=== PATIENT | female | born 1985 | race Caucasian/White ===

== ENCOUNTER 2020-08-17 08:11 | Emergency (ER) | payer OTHER ==
--- NOTE | 2020-08-17 10:10 | EDPHYS ---
Physician Documentation [facility] Name: Millie Page Age: 35 yrs Sex: Female : 1985 Arrival Date: 08/17/2020 Time: 08:16 Bed 12 Private MD: ED Physician Serena Mccormack HPI: 08/17 09:33 This 35 yrs old Female presents to ER via Ambulatory with complaints of Sore ma2 Throat. 09:33 Onset: The symptoms/episode began/occurred gradually, 2 day(s) ago. Severity of ma2 symptoms: At their worst the symptoms were very mild, in the emergency department the symptoms are unchanged. Associated signs and symptoms: Pertinent negatives cough, diarrhea, dysphagia. The patient has not experienced similar symptoms in the past, The patient has experienced a previous episode. 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 - Social history:: Smoking status: Patient denies any tobacco usage or history of. - Family history:: not pertinent. ROS: 09:33 Constitutional: Negative for fever, chills, and weight loss. ma2 09:33 All other systems are negative. Exam: 09:33 Constitutional: This is a well developed, well nourished patient who is awake, alert, ma2 and in no acute distress. Eyes: Pupils equal round and reactive to light, extra-ocular motions intact. Lids and lashes normal. Conjunctiva and sclera are non-icteric and not injected. Cornea within normal limits. Periorbital areas with no swelling, redness, or edema. ENT: Nares patent. No nasal discharge, no septal abnormalities noted. Tympanic membranes are normal and external auditory canals are clear. Oropharynx with no redness, swelling, or masses, exudates, or evidence of obstruction, uvula midline. Mucous membranes moist. Neck: Trachea midline, no thyromegaly or masses palpated, and no cervical lymphadenopathy. Supple, full range of motion without nuchal rigidity, or vertebral point tenderness. No Meningismus. Chest/axilla: Normal chest wall appearance and motion. Nontender with no deformity. No lesions are appreciated. Cardiovascular: Regular rate and rhythm with a normal S1 and S2. No gallops, murmurs, or rubs. Normal PMI, no JVD. No pulse deficits. Respiratory: Lungs have equal breath sounds bilaterally, clear to auscultation and percussion. No rales, rhonchi or wheezes noted. No increased work of breathing, no retractions or nasal flaring. Abdomen/GI: Soft, non-tender, with normal bowel sounds. No distension or tympany. No guarding or rebound. No evidence of tenderness throughout. Back: No spinal tenderness. No costovertebral tenderness. Full range of motion. Skin: Warm, dry with normal turgor. Normal color with no rashes, no lesions, and no evidence of cellulitis. MS/ Extremity: Pulses equal, no cyanosis. Neurovascular intact. Full, normal range of motion. Neuro: Awake and alert, GCS 15, oriented to person, place, time, and situation. Cranial nerves II-XII grossly intact. Motor strength 5/5 in all extremities. Sensory grossly intact. Cerebellar exam normal. Normal gait. Vital Signs: 08:28 BP 111 / 68; Pulse 77; Resp 16; Temp 97.2(T); Pulse Ox 99% ; Height 5 ft. 2 in. (157.48 sv cm); 08:34 BP 130 / 67; Pulse 74; Resp 18; Temp 97.2; Pulse Ox 100% on R/A; Pain 4/10; ld1 MDM: 08:48 Patient medically screened. or2 09:33 Differential diagnosis: Allergic rhinitis, tonsillitis, upper respiratory infection, ma2 viral syndrome. Data reviewed: vital signs, nurses notes. 10:09 Counseling: I had a detailed discussion with the patient and/or guardian regarding: the [facility] historical points, exam findings, and any diagnostic results supporting the discharge/admit diagnosis, the presence of at least one elevated blood pressure reading (>120/80) during this emergency department visit, the need for outpatient follow up. 08/17 08:50 Order name: COVID-19 : Document "Date of Symptom Onset" if Symptomatic. [facility] 08/17 08:50 Order name: Strep; Complete Time: 09:59 [facility] 08/17 09:18 Order name: CORONAVIRUS [facility] 08/17 09:37 Order name: Throat Culture [facility] 08/17 09:57 Order name: SARS-COV-2 RT PCR; Complete Time: 09:59 [facility] Administered Medications: No medications were administered Disposition: 08/17/20 10:09 Discharged to Home. Impression: Acute pharyngitis. - Condition is Stable. - Discharge Instructions: Pharyngitis. - Prescriptions for Zithromax Z- Yassine 250 mg Oral Tablet - take 1 tablet by ORAL route as directed for 5 days Day 1 - take two (2) tablets one time. Day 2, 3, 4 , 5 take one (1) tablet once daily.; 6 tablet. Medrol (Yassine) 4 mg Oral Tablets, Dose Pack - take 1 tablet by ORAL route as directed - follow package instructions; 1 packet. - Medication Reconciliation Form, Thank You Letter, Antibiotic Education, Prescription Opioid Use form. - Follow up: Private Physician; When: Tomorrow; Reason: Continuance of care. Signatures: Dispatcher [employer] [facility] Judy Henry RN RN Serena Mccormack MD MD ma2 Suzie Michaels RN RN ld1 Corrections: (The following items were deleted from the chart) 10:27 10:09 08/17/2020 10:09 Discharged to Home. Impression: Acute pharyngitis. Condition is ld1 Stable. Discharge Instructions: Pharyngitis. Prescriptions for Zithromax Z-Yassine 250 mg Oral Tablet - take 1 tablet by ORAL route as directed for 5 days Day 1 - take two (2) tablets one time. Day 2, 3, 4 , 5 take one (1) tablet once daily.; 6 tablet, Medrol (Yassine) 4 mg Oral Tablets, Dose Pack - take 1 tablet by ORAL route as directed - follow package instructions; 1 packet. and Forms are Medication Reconciliation Form, Thank You Letter, Antibiotic Education, Prescription Opioid Use. Follow up: Private Physician; When: Tomorrow; Reason: Continuance of care. ma2
--- NOTE | 2020-08-17 10:10 | ER ---
Nurse's Notes [facility] Name: Millie Page Age: 35 yrs Sex: Female : 1985 Arrival Date: 08/17/2020 Time: 08:16 Bed 12 Private MD: Diagnosis: Acute pharyngitis Presentation: 08/17 08:27 Chief complaint: Patient states: sore throat x 2 days. Coronavirus screen: Client sv denies travel out of the [place] in the last 14 days. Client presents with at least one sign or symptom that may indicate coronavirus-19. Standard/surgical mask placed on the client. Provider contacted for isolation considerations. Ebola Screen: No symptoms or risks identified at this time. Risk Assessment: Do you want to hurt yourself or someone else? Patient reports no desire to harm self or others. Onset of symptoms was August 15, 2020. 08:27 Method Of Arrival: Ambulatory sv 08:27 Acuity: KVNG 4 sv 08:28 Initial Sepsis Screen: Does the patient meet any 2 criteria? No. Patient's initial sv sepsis screen is negative. Does the patient have a suspected source of infection? No. Patient's initial sepsis screen is negative. 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 - Social history:: Smoking status: Patient denies any tobacco usage or history of. - Family history:: not pertinent. Screenin:34 Abuse screen: Denies threats or abuse. Denies injuries from another. Nutritional ld1 screening: No deficits noted. Tuberculosis screening: No symptoms or risk factors identified. Fall Risk None identified. Assessment: 08:34 General: Appears in no apparent distress. comfortable, Behavior is calm, cooperative, ld1 appropriate for age. Pain: Denies pain. Neuro: Level of Consciousness is awake, alert, obeys commands, Oriented to person, place, time, situation. Cardiovascular: Capillary refill < 3 seconds Patient's skin is warm and dry. Respiratory: Airway is patent Respiratory effort is even, unlabored, Respiratory pattern is regular, symmetrical, Breath sounds are clear bilaterally. GI: Abdomen is flat, non-distended. : No signs and/or symptoms were reported regarding the genitourinary system. EENT: Throat is pink is reddened. Derm: No signs and/or symptoms reported regarding the dermatologic system. Musculoskeletal: No signs and/or symptoms reported regarding the musculoskeletal system. 08:34 Pain: Complains of pain in uvula, left aspect of posterior pharynx and right aspect of ld1 posterior pharynx Pain does not radiate. Pain currently is 4 out of 10 on a pain scale. Quality of pain is described as burning, Pain began 2-3 days ago. Is continuous. 08:38 Reassessment: ERP at bedside discussing POC. ld1 Vital Signs: 08:28 BP 111 / 68; Pulse 77; Resp 16; Temp 97.2(T); Pulse Ox 99% ; Height 5 ft. 2 in. (157.48 sv cm); 08:34 BP 130 / 67; Pulse 74; Resp 18; Temp 97.2; Pulse Ox 100% on R/A; Pain 4/10; ld1 ED Course: 08:16 Patient arrived in ED. ds1 08:27 Triage completed. sv 08:27 Arm band placed on. sv 08:30 Suzie Michaels RN is Primary Nurse. ld1 08:34 Patient has correct armband on for positive identification. Bed in low position. Call ld1 light in reach. Side rails up X 1. Pulse ox on. NIBP on. 08:34 No provider procedures requiring assistance completed. ld1 08:48 Serena Mccormack MD is Attending Physician. ma2 08:59 COVID-19 : Document "Date of Symptom Onset" if Symptomatic. Sent. ld1 08:59 Strep Sent. ld1 09:22 CORONAVIRUS Sent. ld1 10:27 Patient did not have IV access during this emergency room visit. ld1 Administered Medications: No medications were administered Outcome: 10:09 Discharge ordered by . ma2 10:26 Discharged to home ambulatory. ld1 10:26 Condition: stable 10:26 Discharge instructions given to patient, Instructed on discharge instructions, follow up and referral plans. medication usage, Demonstrated understanding of instructions, follow-up care, medications. 10:27 Patient left the ED. ld1 Signatures: Judy Henry RN RN Chelly Hernandez ds1 Serena Mccormack MD MD ma2 Suzie Michaels RN RN ld1 Corrections: (The following items were deleted from the chart) 08:30 08:28 Pulse 77bpm; Resp 16bpm; Pulse Ox 99%; Temp 97.2F; Height 5 ft. 2 in.; sv sv
[2020-08-17 10:34] VITALS: TEMP 97.2
[2020-08-17 10:35] VITALS: BP 130/67; O2SAT 100
== END 2020-08-17 10:27 | disposition home or self-care (01) ==
LOC: ER 08:11
DX: J02.9 Acute pharyngitis, unspecified (principal); Z20.822 Contact with and (suspected) exposure to COVID-19
CPT/HCPCS: 87070; 87081; U0003; 99283

== ENCOUNTER 2024-08-12 04:44 | Emergency (ER) | payer SELFPAY ==
[2024-08-12 05:45] LABS: Absolute Basophils 0.1 K/uL (0-0.5); Absolute Eosinophils 0.2 K/uL (0-0.5); Absolute Lymphocytes (CBC) 1.7 K/uL (0.7-4.9); Absolute Monocytes 0.4 K/uL (0.1-1.3); Absolute Neutrophil 3.8 K/uL (1.8-8.0); Basophils % 1.1 % (0-1.3); Hematocrit 33.3 % (36.0-45.0); Hemoglobin 10.7 g/dL (12.0-15.0); Lymphocytes % 27.1 % (15.3-44.8); MCH 21.3 pg (27.0-35.0); MCV 66.7 fL (80-100); MPV 9.3 fL (7.6-11.3); Monocytes % 7.1 % (3.3-12.3); Neutrophils % 60.7 % (41.7-73.7); Platelets 290 thou/uL (152-406); Red Cell Distribution Width 17.2 % (12.1-15.2)
[2024-08-12 05:47] LABS: PT Prothrombin Time 11.4 SECONDS (10-13.0)
[2024-08-12 06:01] LABS: ALT/SGPT 21 U/L (13-56); AST/SGOT < 10 U/L (15-37); Albumin 3.7 g/dL (3.4-5.0); Alkaline Phosphatase 66 U/L (45-117); Anion Gap 10.8 mEq/L (5.0-15.0); BUN Blood Urea Nitrogen 10 mg/dL (7-18); Bicarbonate 23 mEq/L (21-32); Bilirubin Direct < 0.2 mg/dL (0-0.2); Bilirubin Indirect, Calculated 0.3 mg/dL (0.2-0.8); Bilirubin Total 0.5 mg/dL (0.2-1.0); Globulin 3.6 g/dL (2.3-3.5); Glomerular Filtration Rate 104 ml/min (=/>90); Glucose Level 99 mg/dL (74-106); Magnesium 2.2 mg/dL (1.6-2.4); NT PRO-BNP 80 pg/mL (<125); Potassium 3.8 mEq/L (3.5-5.1); Protein, Total 7.3 g/dL (6.4-8.2); Sodium Level 139 mEq/L (136-145); Troponin High Sensitivity 3.6 pg/mL (<58.9)
--- NOTE | 2024-08-12 06:12 | RAD REPORT ---
CLINICAL HISTORY: Chest pain. COMPARISON: None. TECHNIQUE: XR CHEST 1 VIEW 08/12/2024 5:08 AM CDT FINDINGS: The heart is borderline in size. Pediatric sternotomy wires are present. There is a metallic surgical construct in the region of the main pulmonary artery, overall indeterminate. Lungs are clear without consolidation, atelectasis, mass or edema. There is no pleural effusion. There is no pneumoth orax. There are no acute osseous findings. IMPRESSION: No pneumonia. Electronically signed by: Esdras Hill MD 08/12/2024 05:59 AM CDT RP Due to temporary technical issues with the PACS/[employer] reporting system, reports are being jesus d by the in-house radiologist without review as a courtesy to ensure prompt reporting the interpreting radiologist is fully responsible for the content of the report. Transcribed Date/Time: 08/12/2024 6:12 AM
[2024-08-12 07:27] LABS: Specific Gravity 1.008 (1.005-1.030); Urine Bilirubin NEGATIVE (Negative); Urine Blood Negative (Negative); Urine Clarity Clear (Clear); Urine Color Colorless (Yellow); Urine Glucose NEGATIVE (Negative); Urine Ketones NEGATIVE (Negative); Urine Microscopic Reflex YN NO UMIC; Urine Nitrite NEGATIVE (Negative); Urine Protein NEGATIVE (Negative); Urine Urobilinogen Normal (Normal); Urine pH 6.5 (5.0-7.0)
[2024-08-12 07:38] LABS: Anisocytosis SLIGHT; Blood Morphology Comment NOTED (NOT SEEN); Microcytosis SLIGHT; Platelet Estimate ADEQ; White Blood Cell Scan OK (OK)
--- NOTE | 2024-08-12 08:26 | RAD REPORT ---
EXAM: CT Chest For Pe Angio TECHNIQUE: CT angiogram of the chest was performed following intravenous contrast administration, inc luding sagittal and coronal as well as maximum intensity projection reformats. One or more of the following dose reduction techniques were used: Automated exposure control, adjustment of the mA and k V according to patient size, and iterative reconstruction. Unless otherwise specified, incidental findings do not require dedicated imaging follow-up. INDICATION: CHEST PAIN COMPARISON: 08/12/2024 chest radiograph. FINDINGS: LINES/TUBES: None. PULMONARY ARTERIES: Main pulmonary arteries are normal in caliber. No filling defects within the pul monary arteries to suggest pulmonary embolus. LUNGS AND AIRWAYS: The central airways are patent with confluent patchy groundglass opacities centere d on the upper segment right lower lobe. PLEURA: No effusion or pneumothorax. HEART AND MEDIASTINUM: The visualized thyroid gland is normal. No mediastinal, hilar, or axillary lym phadenopathy. Heart is unremarkable. No pericardial effusion. SOFT TISSUES AND BONES: No acute osseous abnormality. No significant soft tissue finding. UPPER ABDOMEN: Unremarkable. IMPRESSION: No evidence of acute central pulmonary emboli. Patchy right lower lobe upper segment groundglass opacities, concerning for pneumonia.
--- NOTE | 2024-08-12 08:56 | ER ---
Nurse's Notes [facility] Name: Millie Armijo Age: 39 yrs Sex: Female : 1985 Arrival Date: 08/12/2024 Time: 04:44 Bed 5 Private MD: Diagnosis: Pneumonia, unspecified organism Presentation: 08/12 04:55 Chief complaint: Patient states: I HAVE BEEN FEELING SHORTNESS OF BREATH SINCE ha1 MONDAY. TONIGHT I WOKE UP FEELING CHEST PRESSURE NECK PAIN, CHEST CONGESTION, AND FAST HEART RATE, FEELING TIRED, AND HEADACHE. 04:55 Coronavirus screen: Client denies travel out of the [place] in the last 14 days. Ebola ha1 Screen: No symptoms or risks identified at this time. Initial Sepsis Screen: Does the patient meet any 2 criteria? No. Patient's initial sepsis screen is negative. Does the patient have a suspected source of infection? No. Patient's initial sepsis screen is negative. Risk Assessment: Do you want to hurt yourself or someone else? Patient reports no desire to harm self or others. Onset of symptoms was August 12, 2024. 04:55 Method Of Arrival: Ambulatory ha1 04:55 Acuity: KVNG 2 ha1 Triage Assessment: 04:55 General: Appears uncomfortable, Behavior is cooperative. Pain: Complains of pain in ha1 CHEST PRESSURE Pain currently is 4 out of 10 on a pain scale. Quality of pain is described as pressure. Neuro: Level of Consciousness is awake, alert, obeys commands, Oriented to person, place, time, situation. Cardiovascular: Reports shortness of breath, since CHEST PRESSURE Murmur present Capillary refill < 3 seconds Patient's skin is warm and dry. Rhythm is sinus rhythm. Respiratory: Reports shortness of breath at rest on exertion CHEST CONGESTION Onset: The symptoms/episode began/occurred gradually, the patient has moderate shortness of breath. GI: Abdomen is round non-distended, Bowel sounds present X 4 quads. : No signs and/or symptoms were reported regarding the genitourinary system. Derm: Skin is pink, warm \T\ dry. Musculoskeletal: Circulation, motion, and sensation intact. Range of motion: intact in all extremities. Historical: - Allergies: 04:55 No Known Allergies; ha1 - PMHx: 04:55 AORTIC STENOSIS; AORTIC INSUFICIENT; ha1 - PSHx: 04:55 OPEN HEART SURGERY (1994); ha1 - Immunization history:: Adult Immunizations up to date. - Infectious Disease History:: Denies. - Social history:: Smoking status: Reported history of juuling and/or vaping. - Family history:: not pertinent. Screenin:43 [facility] ED Fall Risk Assessment (Adult) History of falling in the last 3 months, ha1 including since admission No falls in past 3 months (0 pts) Confusion or Disorientation No (0 pts) Intoxicated or Sedated No (0 pts) Impaired Gait No (0 pts) Mobility Assist Device Used No (0 pt) Altered Elimination No (0 pt) Score/Fall Risk Level 0 - 2 = Low Risk Oriented to surroundings, Maintained a safe environment, Educated pt \T\ family on fall prevention, incl call for assistance when getting out of bed, Hourly rounding (assess needs \T\ fall precautionary measures) done. Abuse screen: Denies threats or abuse. Denies injuries from another. Nutritional screening: No deficits noted. Tuberculosis screening: No symptoms or risk factors identified. Assessment: 05:45 Reassessment: SEE TRIAGE ASSESSMENT. Cardiovascular: Reports shortness of breath, ha1 Murmur present Capillary refill < 3 seconds Patient's skin is warm and dry. Respiratory: Reports shortness of breath at rest Airway is patent Respiratory effort is even, unlabored, 06:43 Reassessment: Patient appears in no apparent distress at this time. No changes from lg3 previously documented assessment. Patient and/or family updated on plan of care and expected duration. Pain level reassessed. Patient is alert, oriented x 3, equal unlabored respirations, skin warm/dry/pink. 07:20 Reassessment: Patient appears in no apparent distress at this time. Patient and/or iw family updated on plan of care and expected duration. Pain level reassessed. Patient is alert, oriented x 3, equal unlabored respirations, skin warm/dry/pink. pt states she feels light headed after CT, also having urinary issues, like frequency and some burning. Vital Signs: 04:55 BP 136 / 84; Pulse 70; Resp 17 S; Temp 98.2(O); Pulse Ox 100% on R/A; Weight 74.84 kg; ha1 Height 5 ft. 1 in. ; 06:43 BP 127 / 69; Pulse 66; Resp 20 S; Pulse Ox 100% on R/A; lg3 07:36 BP 130 / 69; Pulse 61; Resp 16; Pulse Ox 100% on R/A; iw 04:55 Body Mass Index 31.18 (74.84 kg, 154.94 cm) ha1 Driver Coma Score: 05:42 Eye Response: spontaneous(4). Motor Response: obeys commands(6). Verbal Response: sp4 oriented(5). Total: 15. ED Course: 04:52 Patient arrived in ED. gm2 04:55 Patient has correct armband on for positive identification. Placed in gown. Bed in low ha1 position. Call light in reach. Side rails up X 1. 04:55 Provided Education on: PLAN OF CARE . Client placed on continuous cardiac and pulse ha1 oximetry monitoring. NIBP monitoring applied. instant printer operator on. Door closed. Noise minimized. Lights dimmed. Warm blanket given. Pillow given. 05:07 Rudolph Tejeda MD is Attending Physician. sp4 05:13 Rupali Mendenhall, JOSS is Primary Nurse. ha1 05:17 Triage completed. ha1 05:35 Basic Metabolic Panel Sent. ha1 05:35 CBC with Diff Sent. ha1 05:35 LFT's Sent. ha1 05:35 Magnesium Sent. ha1 05:35 NT PRO-BNP Sent. ha1 05:36 PT-INR Sent. ha1 05:36 Troponin HS Sent. ha1 05:36 Test, Serum Sent. ha1 05:45 XRAY Chest (1 view) In Process Unspecified. EDMS 07:05 CT Chest For PE Angio In Process Unspecified. EDMS 07:21 Attending Physician role handed off by Rudolph Tejeda MD ms3 07:21 Cory Trujillo DO is Attending Physician. ms3 07:37 Primary Nurse role handed off by Rupali Mendenhall RN iw 07:37 Amelia Estrella, JOSS is Primary Nurse. iw 08:50 Jonathon Harrison DO is Referral Physician. ms3 09:29 No provider procedures requiring assistance completed. IV discontinued, intact, iw bleeding controlled, No redness/swelling at site. Pressure dressing applied. Administered Medications: No medications were administered Medication: 05:45 VIS not applicable for this client. ha1 Outcome: 08:55 Discharge ordered by . ms3 09:29 Discharged to home ambulatory, iw 09:29 Condition: good 09:29 Discharge instructions given to patient, Instructed on discharge instructions, follow up and referral plans. medication usage, Demonstrated understanding of instructions, follow-up care, medications, Prescriptions given X 2, 09:29 Patient left the ED. iw Signatures: Dispatcher [employer] EDMS Amelia Estrella RN JOSS Able, JOSS Verdugo RN lg3 Cory Trujillo, DO ms3 Rupali Mendenhall RN RN ha1 Rudolph Tejeda MD MD sp4 Heather Flowers 2 Corrections: (The following items were deleted from the chart) 05:47 04:55 Chief complaint: Patient states: I HAVE BEEN FEELING SHORTNESS OF BREATH SINCE ha1 MONDAY. TONIGHT I WOKE UP FEELING CHEST PRESSURE NECK PAIN, CHEST CONGESTION, AND FAST HEART RATE ha1
--- NOTE | 2024-08-12 08:56 | EDPHYS ---
Physician Documentation [facility] Name: Millie Armijo Age: 39 yrs Sex: Female : 1985 Arrival Date: 08/12/2024 Time: 04:44 Bed 5 Private MD: ED Physician Cory Trujillo HPI: 08/12 05:07 This 39 yrs old Female presents to ER via Unassigned with complaints of sp4 Shortness Of Breath, General Weakness, neck pain, patient has had two prior open heart surgerys. 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 Reported generalized weakness since , 5 days ago moderate to severe orthopnea as well. . Historical: - Allergies: 04:55 No Known Allergies; ha1 - PMHx: 04:55 AORTIC STENOSIS; AORTIC INSUFICIENT; ha1 - PSHx: 04:55 OPEN HEART SURGERY (1994); ha1 - Immunization history:: Adult Immunizations up to date. - Infectious Disease History:: Denies. - Social history:: Smoking status: Reported history of juuling and/or vaping. - Family history:: not pertinent. ROS: 05:42 Constitutional: Negative for fever, chills, and weight loss, positive dyspnea on sp4 exertion, positive generalized weakness, positive orthopnea 05:42 All other systems are negative, Exam: 05:42 Constitutional: This is a well developed, well nourished patient who is awake, alert, sp4 and in no acute distress. Head/Face: Normocephalic, atraumatic. Eyes: Pupils equal round and reactive to light, extra-ocular motions intact. Lids and lashes normal. Conjunctiva and sclera are not injected. Cornea within normal limits. Periorbital areas with no swelling, redness, or edema. ENT: Nares patent. No nasal discharge, no septal abnormalities noted. Tympanic membranes are normal and external auditory canals are clear. Oropharynx with no redness, swelling, or masses, exudates, or evidence of obstruction, uvula midline. Mucous membranes moist. Neck: Trachea midline, no thyromegaly or masses palpated, and no cervical lymphadenopathy. Supple, full range of motion without nuchal rigidity, or vertebral point tenderness. Positive jugular venous distention, Chest/axilla: Normal chest wall appearance and motion. Nontender with no deformity. No lesions are appreciated. Cardiovascular: Regular rate and rhythm with a normal S1 and S2. No gallops, or rubs. Normal PMI, no JVD. No pulse deficits. Positive moderate aortic murmur Respiratory: Lungs have equal breath sounds bilaterally, clear to auscultation and percussion. No rales, rhonchi or wheezes noted. No increased work of breathing, no retractions or nasal flaring. Abdomen/GI: Soft, with normal bowel sounds. No distension or tympany. No guarding or rebound. No evidence of tenderness throughout. Back: No spinal tenderness. No costovertebral tenderness. Skin: Warm, dry with normal turgor. Normal color with no rashes, no lesions, and no evidence of cellulitis. MS/ Extremity: Pulses equal, no cyanosis. Neurovascular intact. Full, normal range of motion. Neuro: Awake and alert, GCS 15, oriented to person, place, time, and situation. Cranial nerves II-XII grossly intact. Motor strength 5/5 in all extremities. Sensory grossly intact. Psych: Awake, alert, with orientation to person, place and time. Behavior, mood, and affect are within normal limits 05:42 ECG was reviewed by the Attending Physician. EKG 0 510 normal sinus rhythm rate 65 sp4 normal EKG Vital Signs: 04:55 BP 136 / 84; Pulse 70; Resp 17 S; Temp 98.2(O); Pulse Ox 100% on R/A; Weight 74.84 kg; ha1 Height 5 ft. 1 in. ; 06:43 BP 127 / 69; Pulse 66; Resp 20 S; Pulse Ox 100% on R/A; lg3 07:36 BP 130 / 69; Pulse 61; Resp 16; Pulse Ox 100% on R/A; iw 04:55 Body Mass Index 31.18 (74.84 kg, 154.94 cm) ha1 Herminio Coma Score: 05:42 Eye Response: spontaneous(4). Motor Response: obeys commands(6). Verbal Response: sp4 oriented(5). Total: 15. MDM: 05:37 Medical Screening Exam initiated sp4 05:46 Differential diagnosis: Anxiety Reaction CHF exacerbation, Chronic Obstructive sp4 Pulmonary Disease pneumonia, Psychogenic pulmonary edema, Unstable Angina. Data reviewed: vital signs, nurses notes, lab test result(s), radiologic studies, CT scan, plain films. 06:24 ED course: CLINICAL HISTORY: Chest pain. COMPARISON: None. TECHNIQUE: XR CHEST 1 VIEW 4 08/12/2024 5:08 AM CDT FINDINGS: The heart is borderline in size. Pediatric sternotomy wires are present. There is a metallic surgical construct in the region of the main pulmonary artery, overall indeterminate. Lungs are clear without consolidation, atelectasis, mass or edema. There is no pleural effusion. There is no pneumothorax. There are no acute osseous findings. IMPRESSION: No pneumonia. . 06:55 Transition of care: After a detail discussion of the patient's case, care is sp4 transferred to Cory Trujillo DO. ED course: Patient is waiting on the CTA of the chest.. 07:22 Transition of care: Care assumed from Rudolph Tejeda MD. ED course: Patient care/ ms3 report received from Dr Tejeda. Patient is 39 yo female with pmh of aortic stenosis presenting with dyspnea. BNP normal. CT chest pending.. 08/12 05:08 Order name: Basic Metabolic Panel; Complete Time: 06:23 sp4 08/12 05:08 Order name: CBC with Diff; Complete Time: 08:31 sp4 08/12 05:08 Order name: LFT's; Complete Time: 06:23 sp4 08/12 05:08 Order name: Magnesium; Complete Time: 06:23 sp4 08/12 05:08 Order name: NT PRO-BNP; Complete Time: 06:23 sp4 08/12 05:08 Order name: PT-INR; Complete Time: 06:23 sp4 08/12 05:08 Order name: Troponin HS; Complete Time: 06:23 sp4 08/12 05:24 Order name: Test, Serum; Complete Time: 06:23 sp4 08/12 06:35 Order name: CBC Smear Scan; Complete Time: 08:31 EDMS 08/12 07:07 Order name: UA Rfx Moses Cult if indicated; Complete Time: 07:30 lg3 08/12 05:08 Order name: XRAY Chest (1 view); Complete Time: 06:23 sp4 08/12 05:17 Order name: CT Chest For PE Angio; Complete Time: 08:31 sp4 08/12 05:08 Order name: Cardiac monitoring; Complete Time: 05:14 sp4 08/12 05:08 Order name: EKG - Nurse/Tech; Complete Time: 05:14 sp4 08/12 05:08 Order name: IV Saline Lock; Complete Time: 05:35 sp4 08/12 05:08 Order name: Labs collected and sent; Complete Time: 05:35 sp4 08/12 05:08 Order name: O2 Per Protocol; Complete Time: 05:14 sp4 08/12 05:08 Order name: O2 Sat Monitoring; Complete Time: 05:14 sp4 EC:10 Rate is 65 beats/min. Rhythm is regular, Normal Sinus Rhythm. QRS [place] is Normal. CO sp4 interval is normal. QRS interval is normal. QT interval is normal. No Q waves. T waves are Normal. No ST changes noted. Clinical impression: Normal ECG. Interpreted by me. Reviewed by me. Administered Medications: No medications were administered Disposition Summary: 08/12/24 08:55 Discharge Ordered Notes: Location: Home ms3 Condition: Stable ms3 Diagnosis - Pneumonia, unspecified organism ms3 Followup: ms3 - With: Jonathon Harrison DO - When: 2 - 3 days - Reason: Recheck today's complaints Discharge Instructions: - Discharge Summary Sheet ms3 - Community-Acquired Pneumonia, Adult ms3 Forms: - Work release form iw - Medication Reconciliation Form ms3 - Antibiotic Education ms3 - Prescription Opioid Use ms3 - Patient Portal Instructions ms3 - Leadership Thank You Letter ms3 Prescriptions: - albuterol sulfate 90 mcg/actuation Inhalation HFA Aerosol Inhaler - inhale 2 puff INHALATION route 4 times per day as needed for shortness of ms3 breath or wheezing; 1 unit; Refills: 0, Product Selection Permitted - Zithromax Z-Yassine 250 mg Oral Tablet - take 1 tablet ORAL route as directed for 5 days Day 1 - take two (2) tablets ms3 one time. Day 2, 3, 4 , 5 take one (1) tablet once daily.; 6 tablet; Refills: 0, Product Selection Permitted Signatures: Dispatcher [employer] EDCory Jung DO DO ms3 Rupali Mendenhall RN RN ha1 Rudolph Tejeda MD MD sp4 Corrections: (The following items were deleted from the chart) 05:08 05:08 BASIC METABOLIC PANEL+C.LAB.BRZ ordered. EDMS EDMS 05:08 05:08 CBC+H.LAB.BRZ ordered. EDMS EDMS 05:08 05:08 HEPATIC FUNCTION+C.LAB.BRZ ordered. EDMS EDMS 05:08 05:08 MAGNESIUM+C.LAB.BRZ ordered. EDMS EDMS 05:08 05:08 PROBNP+C.LAB.BRZ ordered. EDMS EDMS 05:08 05:08 PROTIME (+INR)+COAG.LAB.BRZ ordered. EDMS EDMS 05:08 05:08 Troponin High Sensitivity+C.LAB.BRZ ordered. EDMS EDMS 05:08 05:08 Chest Single View+RAD.RAD.BRZ ordered. EDMS EDMS
[2024-08-12 09:33] VITALS: TEMP 98.2; O2SAT 100
[2024-08-12 09:37] VITALS: BP 130/69
--- NOTE | 2024-08-12 11:56 | EKG ---
Test Date: 2024-08-12 Test Time: 05:10:08 [employer]: LANEY MEASUREMENT RESULTS: Intervals: Rate: 65 MN: 174 QRSD: 78 QT: 414 QTc: 430 Gamaliel: P: 39 MN: 174 QRS: 76 T: 61 INTERPRETIVE STATEMENTS: Normal sinus rhythm Normal ECG No previous ECG available for comparison Electronically Signed On 08-12-24 11:55:41 CDT by Arthur Rader
== END 2024-08-12 09:29 | disposition home or self-care (01) ==
LOC: ER 04:44
DX: J18.9 Pneumonia, unspecified organism (principal); Z11.52 Encounter for screening for COVID-19
CPT/HCPCS: 36415; 71045; 71275; 80048; 80076; 81003; 83735; 83880; 84484; 84703; 85025; 85610; 93005; 99284; Q9967